=== PATIENT | male | born 1945 | race Caucasian/White ===

== ENCOUNTER 2019-02-28 10:16 | Day surgery (SDC) | payer MEDICARE, OTHER ==
[~2019-02-28] VITALS: Ht 162.6 cm; Wt 78.7 kg
[2019-02-28 11:13] VITALS: BP 139/90; PULSE 63; TEMP 97.4
[2019-02-28] MEDS ORDERED: ZESTRIL30 MG PO (11:33)
[2019-02-28] MEDS ORDERED: LOPRESSOR 225 MG/TAB PO (11:34)
[2019-02-28] MEDS ORDERED: FLOMAX 0.40.4 MG/CAP PO (11:35)
[2019-02-28] MEDS ORDERED: VOLTAREN 75 DR75 MG PO (11:35)
[2019-02-28] MEDS ORDERED: SINGULAIR 110 MG/TAB PO (11:36)
[2019-02-28] MEDS ORDERED: ZOCOR 10MG10 MG PO (11:36)
[2019-02-28] MEDS ORDERED: JOINT ADVANTAGE PO (11:38)
[2019-02-28] MEDS ORDERED: ONE-A-DAY MEN'S1 TAB PO (11:40)
[2019-02-28] MEDS ORDERED: FLORA SINUS (11:40)
[2019-02-28] MEDS ORDERED: ASPIRIN E.C. 8181 MG PO (11:41)
[2019-02-28] MEDS ORDERED: SLEEP AID50 MG PO (11:41)
[2019-02-28] MEDS ORDERED: OMEGA-31 SGL PO (11:42)
[2019-02-28] MEDS ORDERED: NASACORT OTC NS (11:43)
[2019-02-28] MEDS ORDERED: REFRESH TEARS 330 ML OP (11:44)
[2019-02-28] MEDS ORDERED: BLINK OU (11:46)
[2019-02-28] MEDS ORDERED: MOTRIN 600600 MG/TAB PO (14:33)
[2019-02-28] MEDS ORDERED: ULTRAM 50MG TAB50 MG PO (14:33)
[2019-02-28 14:45] VITALS: BP 101/49; PULSE 66; TEMP 97.6
--- NOTE | 2019-02-28 14:45 | NUR ---
TO RM 2 PER CART FROM PACU. DROWSY ORIENTED X3, TALKING TO STAFF AND SON. C/O " MILD PAIN 3/10" DENIES NAUSEA OR VOMITING. WARM BLANKET ACROSS ABDOMEN. LOU SET DRESSINGS CLEAN DRY INTACT.
[2019-02-28 15:00] VITALS: BP 104/49; PULSE 59
--- NOTE | 2019-02-28 15:00 | NUR ---
RECEIVED WATER AND TAKING SIPS.
[2019-02-28 15:15] VITALS: BP 104/59; PULSE 62
--- NOTE | 2019-02-28 15:15 | NUR ---
C/O PAIN 5/10 RECEIVED SPRITE, 2ND WATER, JELLO AND 2 PIECES OF TOAST.
[2019-02-28 15:30] VITALS: BP 119/65; PULSE 66
--- NOTE | 2019-02-28 15:45 | NUR ---
RECEIVED ULTRAM 50MG PO FOR C/O PAIN. ATE 100% AND TOLERATED WELL AMBULATED TO BATHROOM. VOIDED AND TOLERATED WELL.
[2019-02-28 16:05] VITALS: BP 101/49; PULSE 65; TEMP 97.9
--- NOTE | 2019-02-28 16:05 | NUR ---
RECEIVED DISCHARGE INSTRUCTIONS AND VERBALIZED UNDERSTANDING. DISCONTINUED IV AND INT- CATHETER INTACT. PATIENT GETTING DRESSED,
--- NOTE | 2019-02-28 16:20 | NUR ---
DISCHARGED PER WC BY NURSING STAFF TO PRIVATE CAR IN CARE OF SON- KELLY.
== END 2019-02-28 16:22 | disposition home or self-care (01) ==
LOC: SDCO 10:16
DX: K40.90 Unilateral inguinal hernia, without obstruction or gangrene, not specified as recurrent (principal); E78.5 Hyperlipidemia, unspecified; I10 Essential (primary) hypertension; N40.0 Benign prostatic hyperplasia without lower urinary tract symptoms; M19.90 Unspecified osteoarthritis, unspecified site; G43.909 Migraine, unspecified, not intractable, without status migrainosus; J30.1 Allergic rhinitis due to pollen; K21.9 Gastro-esophageal reflux disease without esophagitis; Z79.82 Long term (current) use of aspirin; Z87.891 Personal history of nicotine dependence
CPT/HCPCS: C1781; J0360; J0690; J1100; J1885; J2405; J2704; J3010; J7120